=== PATIENT | male | born 1965 | race Caucasian/White ===

== ENCOUNTER 2020-03-09 03:57 | Emergency (ER) | payer BC ==
[~2020-03-09] VITALS: Ht 188 cm; Wt 110.0 kg
[~2020-03-09 03:57] MED LIST: NO HOME MEDS
[2020-03-09] MEDS ORDERED: etomidate 2mg/ml inj. IV ONE (04:20)
[2020-03-09 04:23] LABS: BASOPHILS # (AUTO) 0.1 X10'3 (0-0.2); BASOPHILS % (AUTO) 1.4 % (0-1); EOSINOPHILS # (AUTO) 0.2 X10'3 (0-0.9); EOSINOPHILS % (AUTO) 2.2 % (0-6); HEMATOCRIT 53.9 % (42.0-52.0); LYMPHOCYTES # (AUTO) 3.9 X10'3 (1.1-4.8); LYMPHOCYTES % (AUTO) 52.4 % (21-51); MEAN CORPUSCULAR HEMOGLOBIN 32.4 PG (27.0-31.0); MEAN CORPUSCULAR HGB CONC 34.1 g/dL (33.0-36.5); MEAN CORPUSCULAR VOLUME 94.8 FL (78-98); MEAN PLATELET VOLUME 9.5 FL (7.4-10.4); MONOCYTES # (AUTO) 0.8 X10'3 (0-0.9); MONOCYTES % (AUTO) 11.4 % (2-12); NEUTROPHILS # (AUTO) 2.4 X10'3 (1.8-7.7); NEUTROPHILS % (AUTO) 32.6 % (42-75); PLATELET COUNT 239 X10'3 (140-440); RED BLOOD COUNT 5.69 X10'6 (4.70-6.10); RED CELL DISTRIBUTION WIDTH 12.9 % (11.5-14.5); WHITE BLOOD COUNT 7.3 X10'3 (4.5-11.0)
[2020-03-09 04:28] LABS: ALANINE AMINOTRANSFERASE 35 U/L (12-78); ALBUMIN 4.3 G/DL (3.4-5.0); ALBUMIN/GLOBULIN RATIO 1.2 (1.1-1.5); ALKALINE PHOSPHATASE 99 IU/L (46-116); ANION GAP 9 (8-16); ASPARTATE AMINO TRANSFERASE 25 U/L (10-37); BILIRUBIN,TOTAL 0.4 MG/DL (0.1-1.0); BLOOD UREA NITROGEN 15 MG/DL (7-18); BUN/CREATININE RATIO 12.3 (5.4-32.0); CALCIUM 9.2 MG/DL (8.5-10.1); CHLORIDE 104 MMOL/L (99-107); CREATININE 1.22 MG/DL (0.60-1.10); GLUCOSE 102 MG/DL (70-104); HEMOGLOBIN 18.4 g/dl (14.0-17.9); POTASSIUM 3.6 MMOL/L (3.5-5.1); SODIUM 141 MMOL/L (135-145); TOTAL CARBON DIOXIDE 27.8 MMOL/L (24-32); eGFR 62 ML/MIN
[2020-03-09 04:38] LABS: MAGNESIUM 2.3 MG/DL (1.5-2.4); PHOSPHORUS 3.6 MG/DL (2.3-4.5)
[2020-03-09 05:39] VITALS: BP 127/84
[2020-03-09 05:57] LABS: GIANT PLATELET FEW; PLATELET ESTIMATE NORMAL; TOTAL CELLS COUNTED 100
== END 2020-03-09 05:40 | disposition home or self-care (01) ==
LOC: ER 03:57
DX: I48.20 Chronic atrial fibrillation, unspecified (principal); I10 Essential (primary) hypertension
CPT/HCPCS: 36415; 71045; 80053; 83735; 84100; 84484; 85025; 92960; 93005; 99152; 99285

== ENCOUNTER 2020-07-02 02:49 | Emergency (ER) | payer BC ==
[~2020-07-02] VITALS: Ht 185.4 cm; Wt 103.0 kg
[2020-07-02] MEDS ORDERED: diltiazem 5mg/ml 5ml inj. IV ONE (03:05)
[2020-07-02 03:10] LABS: BASOPHILS # (AUTO) 0.1 X10'3 (0-0.2); BASOPHILS % (AUTO) 0.8 % (0-1); EOSINOPHILS # (AUTO) 0.1 X10'3 (0-0.9); HEMATOCRIT 49.9 % (42.0-52.0); HEMOGLOBIN 16.8 g/dl (14.0-17.9); LYMPHOCYTES # (AUTO) 3.8 X10'3 (1.1-4.8); MEAN CORPUSCULAR HEMOGLOBIN 32.8 PG (27.0-31.0); MEAN CORPUSCULAR HGB CONC 33.7 g/dL (33.0-36.5); MEAN CORPUSCULAR VOLUME 97.4 FL (78-98); MEAN PLATELET VOLUME 9.3 FL (7.4-10.4); MONOCYTES % (AUTO) 9.4 % (2-12); NEUTROPHILS # (AUTO) 5.4 X10'3 (1.8-7.7); NEUTROPHILS % (AUTO) 51.8 % (42-75); PLATELET COUNT 280 X10'3 (140-440); RED BLOOD COUNT 5.12 X10'6 (4.70-6.10); RED CELL DISTRIBUTION WIDTH 13.4 % (11.5-14.5); WHITE BLOOD COUNT 10.4 X10'3 (4.5-11.0)
[2020-07-02 03:26] LABS: ALANINE AMINOTRANSFERASE 29 U/L (12-78); ALBUMIN 3.5 G/DL (3.4-5.0); ALBUMIN/GLOBULIN RATIO 0.9 (1.1-1.5); ALKALINE PHOSPHATASE 86 IU/L (46-116); ANION GAP 8 (8-16); ASPARTATE AMINO TRANSFERASE 16 U/L (10-37); BILIRUBIN,TOTAL 0.3 MG/DL (0.1-1.0); BLOOD UREA NITROGEN 23 MG/DL (7-18); BUN/CREATININE RATIO 21.1 (5.4-32.0); CHLORIDE 104 MMOL/L (99-107); CREATININE 1.09 MG/DL (0.60-1.10); GLUCOSE 99 MG/DL (70-104); POTASSIUM 3.4 MMOL/L (3.5-5.1); SODIUM 140 MMOL/L (135-145); TOTAL CARBON DIOXIDE 28.5 MMOL/L (24-32); TOTAL PROTEIN 7.5 G/DL (6.4-8.2); eGFR 70 ML/MIN
[2020-07-02 03:32] LABS: MAGNESIUM 2.1 MG/DL (1.5-2.4)
[2020-07-02] MEDS ORDERED: etomidate 2mg/ml inj. IV ONE (03:40)
[2020-07-02] MEDS ORDERED: metoprolol tartrate 1mg/ml inj IV ONE (03:55)
[2020-07-02] MEDS ORDERED: potassium Cl 20 mEq SR tablet PO ONE (04:00)
--- NOTE | 2020-07-02 04:17 | NUR ---
Pt. cardioverted initially at 100 joules with only transient resolution of afib. Maintained NSR after 2nd cardioversion at 200 joules.
[2020-07-02 05:08] VITALS: BP 122/80
== END 2020-07-02 05:11 | disposition home or self-care (01) ==
LOC: ER 02:49
DX: I48.20 Chronic atrial fibrillation, unspecified (principal); I10 Essential (primary) hypertension; Z72.89 Other problems related to lifestyle
CPT/HCPCS: 36415; 71045; 80053; 83735; 83880; 84484; 85025; 92960; 93005; 96374; 99152; 99285; J3490

== ENCOUNTER 2020-08-01 04:07 | Emergency (ER) | payer BC ==
[~2020-08-01] VITALS: Ht 188 cm; Wt 95.5 kg
[2020-08-01 04:36] LABS: BASOPHILS # (AUTO) 0.1 X10'3 (0-0.2); EOSINOPHILS # (AUTO) 0.2 X10'3 (0-0.9); EOSINOPHILS % (AUTO) 2.6 % (0-6); HEMATOCRIT 49.5 % (42.0-52.0); HEMOGLOBIN 16.9 g/dl (14.0-17.9); LYMPHOCYTES % (AUTO) 43.2 % (21-51); MEAN CORPUSCULAR HEMOGLOBIN 32.4 PG (27.0-31.0); MEAN CORPUSCULAR HGB CONC 34.1 g/dL (33.0-36.5); MEAN PLATELET VOLUME 9.6 FL (7.4-10.4); MONOCYTES # (AUTO) 0.7 X10'3 (0-0.9); MONOCYTES % (AUTO) 10.6 % (2-12); NEUTROPHILS % (AUTO) 42.6 % (42-75); PLATELET COUNT 219 X10'3 (140-440); RED BLOOD COUNT 5.21 X10'6 (4.70-6.10); RED CELL DISTRIBUTION WIDTH 13.6 % (11.5-14.5); WHITE BLOOD COUNT 7.1 X10'3 (4.5-11.0)
[2020-08-01 05:23] VITALS: BP 133/92
[2020-08-01 05:23] LABS: ALANINE AMINOTRANSFERASE 26 U/L (12-78); ALBUMIN 4.2 G/DL (3.4-5.0); ALBUMIN/GLOBULIN RATIO 1.1 (1.1-1.5); ALKALINE PHOSPHATASE 84 IU/L (46-116); ANION GAP 12 (8-16); ASPARTATE AMINO TRANSFERASE 17 U/L (10-37); BILIRUBIN,TOTAL 0.3 MG/DL (0.1-1.0); BLOOD UREA NITROGEN 14 MG/DL (7-18); CALCIUM 9.2 MG/DL (8.5-10.1); CHLORIDE 104 MMOL/L (99-107); GLUCOSE 91 MG/DL (70-104); POTASSIUM 3.8 MMOL/L (3.5-5.1); SODIUM 141 MMOL/L (135-145); TOTAL CARBON DIOXIDE 25.5 MMOL/L (24-32); eGFR 78 ML/MIN
== END 2020-08-01 06:16 | disposition home or self-care (01) ==
LOC: ER 04:08
DX: R00.2 Palpitations (principal); I48.91 Unspecified atrial fibrillation; I10 Essential (primary) hypertension; Z88.2 Allergy status to sulfonamides
CPT/HCPCS: 36415; 71045; 80053; 83880; 84484; 85025; 93005; 99285

== ENCOUNTER 2020-11-20 05:00 | Emergency (ER) | payer BC ==
[~2020-11-20] VITALS: Ht 188 cm; Wt 99.1 kg
[2020-11-20] MEDS ORDERED: normal saline 1000ml 1,000 ML IV ONE (05:20)
--- NOTE | 2020-11-20 05:20 | NUR ---
pt self converted to SR rate 68
[2020-11-20] MEDS ORDERED: flecainide 50mg tablet PO ONE (05:25)
[2020-11-20] MEDS ORDERED: FLEC50TA28 PO (05:29)
[2020-11-20] MEDS ORDERED: CARV3.122 PO (05:29)
[2020-11-20] MEDS ORDERED: RAMI10CA69 PO (05:29)
[2020-11-20 05:40] LABS: BASOPHILS % (AUTO) 0.6 % (0-1); EOSINOPHILS # (AUTO) 0.2 X10'3 (0-0.9); EOSINOPHILS % (AUTO) 2.7 % (0-6); HEMATOCRIT 52.3 % (42.0-52.0); HEMOGLOBIN 17.7 g/dl (14.0-17.9); LYMPHOCYTES # (AUTO) 2.2 X10'3 (1.1-4.8); LYMPHOCYTES % (AUTO) 33.4 % (21-51); MEAN CORPUSCULAR HEMOGLOBIN 32.9 PG (27.0-31.0); MEAN CORPUSCULAR HGB CONC 33.9 g/dL (33.0-36.5); MEAN CORPUSCULAR VOLUME 96.9 FL (78-98); MEAN PLATELET VOLUME 9.6 FL (7.4-10.4); MONOCYTES # (AUTO) 0.7 X10'3 (0-0.9); MONOCYTES % (AUTO) 11.2 % (2-12); NEUTROPHILS # (AUTO) 3.4 X10'3 (1.8-7.7); NEUTROPHILS % (AUTO) 52.1 % (42-75); PLATELET COUNT 268 X10'3 (140-440); RED CELL DISTRIBUTION WIDTH 13.1 % (11.5-14.5); WHITE BLOOD COUNT 6.5 X10'3 (4.5-11.0)
[2020-11-20 05:43] LABS: ALANINE AMINOTRANSFERASE 27 U/L (12-78); ALBUMIN 4.2 G/DL (3.4-5.0); ALBUMIN/GLOBULIN RATIO 1.1 (1.1-1.5); ALKALINE PHOSPHATASE 86 IU/L (46-116); ANION GAP 10 (8-16); ASPARTATE AMINO TRANSFERASE 4 U/L (10-37); BILIRUBIN,TOTAL 0.2 MG/DL (0.1-1.0); BLOOD UREA NITROGEN 21 MG/DL (7-18); BUN/CREATININE RATIO 18.8 (5.4-32.0); CHLORIDE 104 MMOL/L (99-107); CREATININE 1.12 MG/DL (0.60-1.10); GLUCOSE 123 MG/DL (70-104); POTASSIUM 4.4 MMOL/L (3.5-5.1); SODIUM 140 MMOL/L (135-145); TOTAL CARBON DIOXIDE 26.2 MMOL/L (24-32); eGFR 68 ML/MIN
[2020-11-20 06:09] VITALS: BP 114/85
== END 2020-11-20 06:05 | disposition home or self-care (01) ==
LOC: ER 05:01
DX: I48.91 Unspecified atrial fibrillation (principal); I10 Essential (primary) hypertension; Z72.89 Other problems related to lifestyle; Z88.2 Allergy status to sulfonamides; Z79.899 Other long term (current) drug therapy
CPT/HCPCS: 36415; 80053; 85025; 93005; 96360; 99284; J7030

== ENCOUNTER 2021-10-28 10:56 | Emergency (ER) | payer BC ==
[~2021-10-28] VITALS: Ht 188 cm; Wt 106.0 kg
[~2021-10-28 10:56] MED LIST changes: +CARV3.122 PO; +FLEC50TA28 PO; -NO HOME MEDS; +RAMI10CA69 PO
[2021-10-28 11:31] VITALS: BP 149/91
[2021-10-28 12:06] LABS: BASOPHILS % (AUTO) 0.6 % (0-1); EOSINOPHILS # (AUTO) 0.2 X10'3 (0-0.9); EOSINOPHILS % (AUTO) 2.9 % (0-6); HEMATOCRIT 47.1 % (42.0-52.0); HEMOGLOBIN 16.2 g/dl (14.0-17.9); LYMPHOCYTES # (AUTO) 1.8 X10'3 (1.1-4.8); LYMPHOCYTES % (AUTO) 32.8 % (21-51); MEAN CORPUSCULAR HEMOGLOBIN 32.9 PG (27.0-31.0); MEAN CORPUSCULAR HGB CONC 34.4 g/dL (33.0-36.5); MEAN CORPUSCULAR VOLUME 95.6 FL (78-98); MEAN PLATELET VOLUME 8.6 FL (7.4-10.4); MONOCYTES # (AUTO) 0.7 X10'3 (0-0.9); MONOCYTES % (AUTO) 12.1 % (2-12); NEUTROPHILS # (AUTO) 2.8 X10'3 (1.8-7.7); NEUTROPHILS % (AUTO) 51.6 % (42-75); PLATELET COUNT 241 X10'3 (140-440); RED BLOOD COUNT 4.92 X10'6 (4.70-6.10); RED CELL DISTRIBUTION WIDTH 12.8 % (11.5-14.5); WHITE BLOOD COUNT 5.4 X10'3 (4.5-11.0)
[2021-10-28 12:24] LABS: ALANINE AMINOTRANSFERASE 29 U/L (12-78); ALBUMIN 4.2 G/DL (3.4-5.0); ALBUMIN/GLOBULIN RATIO 1.2 (1.1-1.5); ALKALINE PHOSPHATASE 85 IU/L (46-116); ANION GAP 7 (8-16); BILIRUBIN,TOTAL 0.3 MG/DL (0.1-1.0); BLOOD UREA NITROGEN 22 MG/DL (7-18); CHLORIDE 103 MMOL/L (99-107); SODIUM 138 MMOL/L (135-145); TOTAL CARBON DIOXIDE 27.7 MMOL/L (24-32); TOTAL PROTEIN 7.6 G/DL (6.4-8.2); eGFR 69 ML/MIN
[2021-10-28 12:28] LABS: GLUCOSE 102 MG/DL (70-104); POTASSIUM 4.3 MMOL/L (3.5-5.1)
[2021-10-28 12:43] LABS: ASPARTATE AMINO TRANSFERASE 20 U/L (10-37)
== END 2021-10-28 20:53 | disposition left against medical advice (07) ==
LOC: ER 10:57
DX: R07.89 Other chest pain (principal); Z53.21 Procedure and treatment not carried out due to patient leaving prior to being seen by health care provider
CPT/HCPCS: 36415; 71045; 80053; 83880; 84484; 85025; 93005

== ENCOUNTER 2024-04-29 08:43 | Outpatient (CLI) | payer BC ==
[~2024-04-29 08:43] MED LIST changes: +GADOTERATE MEGLUMINE 7.5 MMOL/15 ML VIAL IV ONE; -RAMI10CA69 PO; +RAMI10CA78 PO
== END 2024-04-29 23:59 | disposition home or self-care (01) ==
LOC: MRI 08:43
PROVIDERS: ATTEND Family Medicine
DX: M89.9 Disorder of bone, unspecified (principal); M54.50 Low back pain, unspecified; M77.9 Enthesopathy, unspecified; E66.9 Obesity, unspecified; M51.17 Intervertebral disc disorders with radiculopathy, lumbosacral region
CPT/HCPCS: 73720; A9575

== ENCOUNTER 2025-10-07 18:38 | Emergency (ER) | payer BC ==
[~2025-10-07] VITALS: Ht 188 cm; Wt 106.5 kg
[~2025-10-07 18:38] MED LIST changes: -GADOTERATE MEGLUMINE 7.5 MMOL/15 ML VIAL IV ONE
[2025-10-07 18:48] VITALS: TEMP 98.6
--- NOTE | 2025-10-07 19:54 | Physician Documentation ---
History of Present Illness ~ Chief Complaint: Palpitations Stated Complaint: AFIB Time Seen by MD: 19:51 Primary Medical Doctor: MARY MALLORY HPI Patient presents to the emergency room with chief complaint of atrial fibrillation. Patient has history of atrial fibrillation that has had no problems in the last three years with no medication changes. 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 Denies any chest pain. Reports compliance with his medications. He is not on blood thinners. Denies excessive caffeine and that has not not been drinking enough water Medication Reconciliation Allergies: Coded Allergies: Sulfa (Sulfonamide Antibiotics) (Verified Allergy, Unknown, 11/20/20) Scheduled Carvedilol (Carvedilol), 1 TAB PO BID, (Reported) Flecainide Acetate (Flecainide Acetate), 1 TAB PO BID, (Reported) Ramipril (Ramipril), 1 CAP PO DAILY, (Reported) Past Medical History Past Medical History: Atrial Fibrillation, Hypertension Past Surgical History: no surgical history Alcohol Use: Occasionally Drug Use: none Lives with: Spouse Lives In: Home Review of Systems ROS All review of systems negative except as per HPI Physical Exam Vital Signs: Temperature: 98.6, Source: Temporal, Heart Rate: 149, Respiratory Rate: 21, BP: 133/95, Pulse Oximetry: 95, Weight: 106.500 Physical Exam General: Patient is awake, alert, oriented x4 in no acute distress and well appearing.~ Head: Normocephalic and atraumatic. Eyes: Conjunctival normal. EOMI. PERRL. ENT: Mucous membranes moist. Neck: Supple, trachea is midline. Chest: Clear to auscultation bilaterally without rales, rhonchi, or wheezes. There is no accessory muscle use or retractions. Cardiac: Tachycardic irregular without murmurs, gallops, or rubs. Progress Results/Orders Results/Orders Orders - RAFA ELIAZBETH MD Chest,Single View (10/07/25 19:30) Monitor (10/07/25 19:30) Saline Lock (10/07/25 19:30) Oxygen (10/07/25 19:30) Electrocardiogram (10/07/25 19:30) Hs Troponin I W Calculations (10/07/25 21:30) Hs Troponin I W Calculations (10/07/25 22:30) Diltiazem Iv (Cardizem Iv 5mg/Ml Inj.) (10/07/25 21:05) Completed Orders - RAFA ELIZABETH MD Chest,Single View (10/07/25 19:30) Cbc/Diff (10/07/25 19:30) BMP (10/07/25 19:30) PBNP (10/07/25 19:30) Hs Troponin I W Calculations (10/07/25 19:30) Normal Saline 1000ml (0.9% Sodium Chlori (10/07/25 20:05) Diltiazem Iv (Cardizem Iv 5mg/Ml Inj.) (10/07/25 20:05) Medications Received in ER Medications (Trade) Dose Ordered Sig/Nereida Route PRN Reason Start Time Stop Time Status Last Admin Dose Admin Sodium Chloride 1,000 ml @ 1,000 mls/hr ONCE ONCE IV 10/07/25 20:05 10/07/25 21:04 DC 10/07/25 20:42 1,000 MLS/HR (Cardizem IV 5mg/ ml inj.) 10 mg ONCE ONCE IV 10/07/25 20:05 10/07/25 20:06 DC 10/07/25 20:42 10 MG Vital Signs 10/07/25 10/07/25 18:48 20:42 Temp 98.6 Pulse 149 163 Resp 21 B/P (MAP) 133/95 158/100 Pulse Ox 95 Laboratory Tests Test 10/07/25 19:44 White Blood Count 9.2 Red Blood Count 5.09 Hemoglobin 16.5 Hematocrit 48.4 Mean Corpuscular Volume 95.0 Mean Corpuscular Hemoglobin 32.5 H Mean Corpuscular Hemoglobin Concent 34.2 Red Cell Distribution Width 13.1 Platelet Count 255 Mean Platelet Volume 8.9 Neutrophils (%) (Auto) 56.8 Lymphocytes (%) (Auto) 31.3 Monocytes (%) (Auto) 9.8 Eosinophils (%) (Auto) 1.5 Basophils (%) (Auto) 0.6 Neutrophils # (Auto) 5.2 Lymphocytes # (Auto) 2.9 Monocytes # (Auto) 0.9 Eosinophils # (Auto) 0.1 Basophils # (Auto) 0.1 CBC Comment Sodium Level 143 Potassium Level 4.5 Chloride Level 106 Carbon Dioxide Level 28.4 Anion Gap 9 Blood Urea Nitrogen 21 H Creatinine 1.44 H Estimated GFR/1.73 m2 50 BUN/Creatinine Ratio 14.6 Glucose Level 104 Calcium Level 9.2 Troponin I High Sensitivity 31 Pro-B-Type Natriuretic Peptide 114 Albumin 4.1 Chemistry Comments EKG/XRAY/CT/US/VASC/MRI EKG : Additional Comment EKG interpreted by myself shows time of 184, rate 149, atrial fibrillation, normal axis, nonspecific ST-T changes. EKG interpreted by myself shows time of 11/10/2003, rate 56, sinus bradycardia, normal axis, no ST changes Medical Decision Making Additional information obtaine: old records Findings Patient presents to the emergency room for evaluation of palpitations as per HPI. Patient found to be in AFib RVR. IV fluids initiated along with Cardizem and patient converted. Labs reassuring. He had denies any chest pain and troponin that has reassuring. 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 discussed Differential Dx:Considerations: Include: angina / MO, atrial dysrhythmia, atrial fibrillation, atrial flutter, MAT, PACs, PSVT, sinus tachycardia, WPW, 1st degree AV block, 2nd degree AVB-type 1, 2nd degree AVB-type 2, 3rd degree AV block, PVCs, torsades de pointes, ventricular fibrillation, ventricular tachycardia, other Differential Dx:Considerations: Include anxiety/panic attack, Include digoxin toxicity, Include electrolyte disorder, Include heart failure, Include hyperthyroidism, Include hyperventilation, Include hypoxia, Include pacemaker malfunction, Include pulmonary embolus, Include renal failure, Include other Departure Disposition: HOME / SELF CARE / HOMELESS Impression: Primary Impression: Atrial fibrillation Condition: Improved Discharge Instructions: Atrial Fibrillation, [id number] Additional Instructions: Follow up with your manager of administration Referrals: NO PRIMARY CARE PROVIDER (PCP) Signature Scribe Signature: No scribe Attestation: The note accurately reflects work and decisions made by me.Rafa Elizabeth MD 10/07/25 21:09 RAFA ELIZABETH MD Oct 07, 2025 19:54
[2025-10-07 20:02] LABS: MEAN PLATELET VOLUME 8.9 FL (7.4-10.4); RED CELL DISTRIBUTION WIDTH 13.1 % (11.5-14.5)
--- NOTE | 2025-10-07 20:02 | RADIOLOGY REPORT ---
CLINICAL HISTORY: CP. TECHNIQUE: Single frontal view of the chest was obtained. COMPARISON: CHEST, SINGLE VIEW on DOS: 10/28/21. FINDINGS: DEVICES/LINES/TUBES: None. LUNGS: Clear. PLEURA: No pneumothorax or pleural effusion. MEDIASTINUM/OTHER: Unchanged mildly enlarged cardiac silhouette. Normal mediastinal silhouette. Trachea is midline. BONES: No acute osseous abnormality. UPPER ABDOMEN: Unremarkable. IMPRESSION: 1. No acute cardiopulmonary process. 2. Unchanged mild cardiomegaly.
[2025-10-07 20:12] LABS: CREATININE 1.44 MG/DL (0.60-1.10); PRO BRAIN NATRIURETIC PEPTIDE 114 PG/ML (0-125); TOTAL CARBON DIOXIDE 28.4 MMOL/L (24-32); eCRCL 63 ML/MIN; eGFR 50 ML/MIN
[2025-10-07] MEDS: diltiazem 5mg/ml 5ml inj. IV ONE ×2 (20:42→21:27)
[2025-10-07] MEDS: normal saline 1000ml 1,000 ML IV ONE (20:42)
[2025-10-07 21:05] VITALS: BP 111/79; PULSE 57; RESP 17; O2SAT 99
--- NOTE | 2025-10-07 21:07 | ELECTROCARDIOGRAPH REPORT ---
[facility] Test Date: 2025-10-07 Test Time: 21:04:07 Pat Name: GLENNY EDITH Department: EMERGENCY ROOM [id number] Room: Gender: M Morphologist: SHAHNAZ : 1965 Requested By: DEPARTMENT EMERGENCY Order Number: [id number] Reading MD: Measurements Intervals [place] Rate: 56 P: 37 W[place]: 172 QRS: 58 QRSD: 98 T: 11 QT: 385 QTc: 372 Interpretive Statements Sinus bradycardia Baseline wander in lead(s) I,III,aVL Please click the below link to view image of tracing.
== END 2025-10-07 21:29 | disposition home or self-care (01) ==
LOC: ER 18:38
DX: I48.91 Unspecified atrial fibrillation (principal); I10 Essential (primary) hypertension; Z88.2 Allergy status to sulfonamides; Z79.899 Other long term (current) drug therapy; Z72.89 Other problems related to lifestyle
CPT/HCPCS: 36415; 71045; 80048; 83880; 84484; 85025; 93005; 96361; 96374; 99285; J3490; J7030